=== PATIENT | male | born 1945 | race Caucasian/White ===

== ENCOUNTER 2018-07-28 15:47 | Emergency (ER) | payer MEDICARE ==
[2018-07-28 18:05] LABS: #Basophils 0.1 thou/uL (0.0-0.2); #Eosinphils 0.2 thou/uL (0.0-0.7); #Lymphocytes 1.5 thou/uL (1.20-3.40); #Monocytes 0.7 thou/uL (0.11-0.59); #Neutrophils 6.7 thou/uL (1.40-6.50); %Basophils 0.7 % (0.0-1.0); %Eosinophils 1.7 % (0.0-10.0); %Lymphocytes 16.4 % (21.0-51.0); %Monocytes 7.9 % (0.0-10.0); %Neutrophils 73.3 % (42.0-75.0); Hemoglobin 15.5 g/dL (14.0-18.0); Mean Corpuscular HGB CONC 32.6 g/dL (32.0-36.0); Mean Corpuscular Hemoglobin 32.2 pg (27.0-31.0); Mean Platelet Volume 6.9 fL (7.4-10.4); Platelet Count 307 thou/uL (130-400); RBC Distribution Width 12.2 % (11.5-14.5); White Blood Cell (WBC) Count 9.1 thou/uL (4.8-10.8)
== END 2018-07-28 19:11 | disposition home or self-care (01) ==
LOC: ERS 15:47
DX: M17.12 Unilateral primary osteoarthritis, left knee (principal); Z79.899 Other long term (current) drug therapy
CPT/HCPCS: 36415; 85025; 85652; 86140

== ENCOUNTER 2018-08-16 08:51 | Inpatient (IN) | payer MEDICARE ==
[2018-08-15 17:20] VITALS: BMI 37.1
[2018-08-16] MEDS ORDERED: Bupivacaine HCl 0.5%/Epinephrine 1:200,000/PF 30 ml Vial ONE (10:50)
[2018-08-16] MEDS ORDERED: Fentanyl 100 MCG/2 ML VIAL ONE ×3 (11:01→14:04)
[2018-08-16] MEDS ORDERED: cefTRIAXone\\ROCEPHIN 1 GM VIAL ONE (11:10)
[2018-08-16] MEDS ORDERED: Meperidine HCl/PF 25 MG/ML VIAL ONE (13:10)
[2018-08-16 14:28] LABS: BF Color Red; Body Fluid Source Synovial Fluid; Clarity Cloudy/Turbid (Clear)
[2018-08-16] MEDS ORDERED: PROPOFOL 200 MG/20 ML VIAL ONE (14:28)
[2018-08-16] MEDS ORDERED: Lidocaine 1% PF 5 ML VIAL ONE (14:28)
[2018-08-16] MEDS ORDERED: Ondansetron PF 4 MG/2 ML Vial ONE (14:28)
[2018-08-16 14:29] LABS: RBC Count-Automated 288000 /cumm; WBC/NonHematic-Auto 692 /cumm
[2018-08-16] MEDS ORDERED: Ketorolac Tromethamine 30 MG/ML VIAL ONE (14:41)
[2018-08-16] MEDS ORDERED: Bisacodyl 10 MG SUPP PR PRN (15:17)
[2018-08-16] MEDS ORDERED: Fentanyl 100 MCG/2 ML VIAL SLOW IVP PRN (15:17)
[2018-08-16] MEDS ORDERED: HYDROcodone/Acetaminophen 5/325 mg Tablet PO PRN (15:17)
[2018-08-16] MEDS ORDERED: traMADol HCl 50 MG TAB PO PRN ×2 (15:17)
[2018-08-16 15:21] LABS: BF Segmented Neutrophils 93 %; Cell Count Non Hematic 5 %; Lymphocytes 2 %
[2018-08-16] MEDS: Ketorolac Tromethamine 30 MG/ML VIAL IVP SCH (19:40)
[2018-08-16] MEDS: Tamsulosin HCl 0.4 MG CAP PO SCH (20:10)
[2018-08-16] MEDS: Aspirin 81 mg Enteric Coated Tablet PO SCH (20:10)
[2018-08-16] MEDS ORDERED: Heparin 1,000 UNITS/ML VIAL ONE (20:40)
--- NOTE | 2018-08-16 23:19 | EKG ---
Test Reason : PREOP Blood Pressure : / mmHG Vent. 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
[2018-08-17] MEDS: Ketorolac Tromethamine 30 MG/ML VIAL IVP SCH ×4 (00:47→17:24)
[2018-08-17] MEDS: Tamsulosin HCl 0.4 MG CAP PO SCH ×2 (08:44→20:25)
[2018-08-17] MEDS: Aspirin 81 mg Enteric Coated Tablet PO SCH ×2 (08:44→20:25)
[2018-08-17] MEDS: cefTRIAXone\\ROCEPHIN 2 GM in Sodium Chloride 0.9% 100 ML IVPB SCH (11:40)
--- NOTE | 2018-08-17 12:12 | OP ---
DATE OF PROCEDURE: 08/16/2018 PREOPERATIVE DIAGNOSIS: Possible left septic knee. POSTOPERATIVE DIAGNOSIS: Probable left septic knee. PROCEDURES PERFORMED: 1. Irrigation and debridement of possible left septic knee. 2. Soft tissue biopsy. 3. Aspiration. SPECIAL EVENTS DIRECTOR: None. ANESTHESIA: The patient received an LMA. ESTIMATED BLOOD LOSS: 30 mL. TOURNIQUET TIME: 20 minutes at 300 mmHg. ANTIBIOTICS: Rocephin 2 g. Postprocedure, the patient had an aspirate of 1.5 mL of serosanguineous fluid, which was sent for Gram stain, cell count, culture, crystals. The patient also had soft tissue aspirate from suprapatellar pouch, which was sent for culture. COMPLICATIONS: None. HISTORY OF PRESENT ILLNESS: Mr. Conteh is a 73-year-old male, who presented to my office originally last week, had a confusing history, in which he underwent an aspiration and injection in the past by Dr. Noguera with one of his assistants, Dr. Osborn injected the knee. There was some concern for possible infection. Aspirate was performed, which was negative, showing about 40,000 white cells. The patient then had a secondary aspirate at the beginning of this month in early July, having had Dr. Mccrary's office, which did show cultures, which were considered potential _ there was 42,000 white cells, 95% segments, ESR 30, CRP of 5 last week and I was concerned the patient might have a possible septic knee. Given this, I discussed with him getting arthroscopic soft tissue as well as washing the joint out to help with potentially remedying the situation. I discussed the risks and benefits of surgery to include pain, scar, bleeding, infection, damage to vital structures, decreased range of motion and strength, need for further surgeries, infections in the future, not being able to undergo a total knee arthroplasty. He understood all the risks and benefits and elected to proceed. DESCRIPTION OF PROCEDURE: Time-out was performed designating the patient's left lower extremity as the operative site based on site, consents, and markings. After time-out, I placed a spinal needle, passed it twice, actually trying to get fluid from the pouch, felt like there was a fluid collection, but was only able to get 1.5 mL of serosanguineous fluid, which was sent off for culture. I then started my scope, excised the fat pad, looked in the medial and lateral joint spaces to see if any changes. There was a loose body in the notch, which I removed. I debrided out fat pad and any loose bodies, looking medially and laterally, I then moved into the suprapatellar pouch. I used a soft tissue capture device to capture some of the superior lateral pouch to be sent off for culture and fluid. I then sent that off. I then washed total of 5 L of fluid to the patient's knee. Besides my anterolateral, anteromedial portal, I made a portal just off superolaterally to help with drainage. I left all 3 open, there was some bleeding after tourniquet was let down 20 minutes through the superior lateral portal, which I cauterized. The patient was placed in a soft tissue dressing. The patient received Rocephin after cultures were taken. He will be admitted overnight for 48 hours to follow cultures. The patient will be to proceed Rocephin. Job ID: [id number] [facility]ENTERAngel
--- NOTE | 2018-08-18 00:45 | CON ---
DATE OF CONSULTATION: 08/17/2018 REASON FOR CONSULTATION: Left knee infection. HISTORY OF PRESENT ILLNESS: A 73-year-old, history of chronic left knee problems. Reportedly, he was scheduled for left knee TKR down the road, but was trying to postpone it by getting what he describes as preventive corticosteroid injections in the left knee; the last one was done about a month ago; unfortunately, the symptoms became worse, not better and he started to develop quite prominent knee effusion, was aspirated 3 times and the last time it yielded Haemophilus parainfluenza, so he is admitted, had a washout by Dr. Altamirano, not particularly remarkable arthroscopy. He is currently feeling well. No headaches. No visual symptoms, sore throat, odynophagia, or dysphagia. No cough or sputum production. No chest pain. No abdominal pain. No diarrhea. No genitourinary symptoms. PAST MEDICAL HISTORY: Osteoarthrosis, particularly left knee. SOCIAL HISTORY: He is retired. He works as a rancher. Still quite active. Never smoker. . ALLERGIES: NONE. CURRENT MEDICATIONS: 1. [place]. 2. Ecotrin. 3. Dulcolax. 4. Rocephin. 5. Sublimaze. 6. Toradol. 7. Morphine. 8. Zofran. 9. Tramadol. PHYSICAL EXAMINATION: VITAL SIGNS: He is afebrile. His other vital signs are not particularly remarkable. SKIN: Normal except for the arthroscopy site. Peripheral IV access. No Dumas catheter. No lymphadenopathy. HEENT: Noncontributory. NECK: Supple. LUNGS: Symmetric. Clear breath sounds. HEART: S1 and S2, regular rate. No S3 or S4. ABDOMEN: Soft, not distended or tender. No ascites. No bladder distention. EXTREMITIES: Limitation range of motion of left knee with swelling as expected. NEUROLOGICAL: Nonfocal. LABORATORY DATA: Synovial fluid with 692 WBCs, 92% segmented neutrophils. The hematology with a white cell count 12.6, hemoglobin 15, platelets 290 with 90% neutrophils. Sedimentation rate 35, creatinine 0.82. CRP 5.36. The cultures from Dr. Mccrary's arthrocentesis yielded Haemophilus parainfluenza. ASSESSMENT: Osteoarthrosis with previous injection of corticosteroids few weeks ago, now with what appears to be Haemophilus parainfluenza, left knee septic arthritis. The number of white cells in the fluid are not what one would expect. It is not clear if he was given antimicrobials before he was admitted. It is possible that the corticosteroids have affected the amount of neutrophils that were found, but in view of the culture findings, we will have to treat him. In view of the quinolone, recent black-box warnings regarding multiple adverse reactions, we will continue with IV Rocephin for about 3 weeks. PICC line placement. Job ID: [id number]
[2018-08-18] MEDS: HYDROcodone/Acetaminophen 5/325 mg Tablet PO PRN ×3 (03:30→21:26)
[2018-08-18] MEDS: Aspirin 81 mg Enteric Coated Tablet PO SCH ×2 (09:37→20:05)
[2018-08-18] MEDS: Tamsulosin HCl 0.4 MG CAP PO SCH ×2 (09:37→20:05)
[2018-08-18] MEDS: cefTRIAXone\\ROCEPHIN 2 GM in Sodium Chloride 0.9% 100 ML IVPB SCH (10:23)
--- NOTE | 2018-08-18 11:11 | PQF ---
CLINICAL DOCUMENTATION IMPROVEMENT CLARIFICATION FORM: ICD-10 Updated PLEASE DO AN ADDENDUM TO THE PROGRESS NOTE WITH ANY DOCUMENTATION UPDATES OR ADDITIONS AND CARRY THROUGH TO DC SUMMARY. THANK YOU. DATE: 08/18/18 ATTN: DR. LOWERY Please exercise your independent, professional judgment in responding to the clarification form. Clinical indicators are provided on the bottom of this form for your review Please check appropriate box(s): [ ] Excisional Debridement: [ ] Excised [ ] Cut away [ ] Other: Depth / layer: (deepest layer of debridement): [ ] Skin[ ] SubQ Tissue [ ] Fascia [ ] Muscle [ ] Tendon [ ] Bone Appearance of wound: (e.g., down to fresh bleeding tissue, etc.)___ Margins: (please specify): / x x Instruments used: [ ] Scissors [ ] Scalpel [ ] Curette [ ] Soft tissue clipper [ ] Other: [ ] Non-excisional Debridement: (Removal by flushing, brushing, chemical, or washing) Depth / layer: (deepest layer of debridement): [ ] Skin[ ] Subcutaneous [ ] Fascia [ ] Muscle [ ] Tendon [ ] Bone [ ] Incision and Drainage only (No Debridement): Depth:[ ] Skin [ ] Subcutaneous [ ] Fascia [ ] Muscle [ ] Tendon [ ] Bone [ ] Escharectomy [ ] Other procedure diagnosis [ ] Unable to determine For continuity of documentation, please document condition throughout progress notes and discharge summary. Thank You. CLINICAL INDICATORS - SIGNS / SYMPTOMS / LABS OP NOTE: "I DEBRIDED OUT FAT PAD AND LOOSE BODIES, LOOKING MEDICALLY AND LATERALLY, I THEN MOVED INTO THE SUPRAPATELLAR POUCH.. I USED A SOFT TISSUE CAPTURE DEVICE TO CAPTURE SOME OF THE SUPERIOR POUCH TO BE SENT OFF FOR CULTURE AND FLUID." RISKS: LEFT SEPTIC KNEE TREATMENT: ORTHO CONSULT IRRIGATION AND DEBRIDEMENT (This form is maintained as a part of the permanent medical record) 2014 [employer]. All Rights Reserved [email or web address] Office: [phone] STEPHANIE
--- NOTE | 2018-08-18 18:27 | PRG ---
DATE OF SERVICE: 08/18/2018 SUBJECTIVE: Feeling better, less pain. No respiratory symptoms or abdominal pain. No diarrhea. No genitourinary symptoms. OBJECTIVE: VITAL SIGNS: Normal. GENERAL: Awake, alert, and oriented. Moderate swelling, left knee. LUNGS: Clear. HEART: S1 and S2. Regular rate. ABDOMEN: Soft, not distended. LABORATORY DATA: White cell count has not been repeated. Cultures with the reported organism. The new samples are thus far negative. ASSESSMENT: Haemophilus parainfluenzae, knee infection, probably hematogenous. Continue Rocephin for 3 weeks. I have placed orders for Case Management. Job ID: [id number]
[2018-08-19] MEDS: Aspirin 81 mg Enteric Coated Tablet PO SCH (08:57)
[2018-08-19] MEDS: Tamsulosin HCl 0.4 MG CAP PO SCH (08:57)
--- NOTE | 2018-08-19 09:11 | PQF ---
MATTY PERSON JUSTIN MD [id number] SURG A- [id number] CLINICAL DOCUMENTATION IMPROVEMENT CLARIFICATION FORM: ICD-10 Updated PLEASE DO AN ADDENDUM TO THE PROGRESS NOTE WITH ANY DOCUMENTATION UPDATES OR ADDITIONS AND CARRY THROUGH TO DC SUMMARY. THANK YOU. DATE: 08/18/18 ATTN: DR. LOWERY Please exercise your independent, professional judgment in responding to the clarification form. Clinical indicators are provided on the bottom of this form for your review Please check appropriate box(s): [ ] Excisional Debridement: Depth / layer: (deepest layer of debridement): [ ] Skin[ ] SubQ Tissue [ ] Fascia [ ] Muscle [ ] Tendon [ ] Bone [ ] Non-excisional Debridement: (Removal by flushing, brushing, chemical, or washing) Depth / layer: (deepest layer of debridement): [ ] Skin[ ] Subcutaneous [ ] Fascia [ ] Muscle [ ] Tendon [ ] Bone [ ] Incision and Drainage only (No Debridement): Depth:[ ] Skin [ ] Subcutaneous [ ] Fascia [ ] Muscle [ ] Tendon [ ] Bone [ ] Other procedure diagnosis [ ] Unable to determine For continuity of documentation, please document condition throughout progress notes and discharge summary. Thank You. CLINICAL INDICATORS - SIGNS / SYMPTOMS / LABS - OP NOTE (Dr. Lowery): "I DEBRIDED OUT FAT PAD AND LOOSE BODIES, LOOKING MEDICALLY AND LATERALLY, I THEN MOVED INTO THE SUPRAPATELLAR POUCH.. I USED A SOFT TISSUE CAPTURE DEVICE TO CAPTURE SOME OF THE SUPERIOR POUCH TO BE SENT OFF FOR CULTURE AND FLUID." RISKS: - OP NOTE (Dr. Lowery): Probable LEFT SEPTIC KNEE TREATMENT: - OP NOTE (Dr. Lowery) IRRIGATION AND DEBRIDEMENT 08-16 (Argen[employer]) ID consult: OSTEOARTHROSIS W/ PREVIOUS INJECTION OF CORTICOSTEROIDS FEW WEEKS AGO, NOW W/ WHAT APPEARS TO BE HAEMOPHILUS PARAINFLUENZA, LEFT KNEE SEPTIC ARTHRITIS Thank you, Roshni (This form is maintained as a part of the permanent medical record) 2015 [employer]. All Rights Reserved [email or web address] Office: [phone] [facility]
[2018-08-19] MEDS: cefTRIAXone\\ROCEPHIN 2 GM in Sodium Chloride 0.9% 100 ML IVPB SCH (13:11)
--- NOTE | 2018-08-19 14:43 | SPC ---
Sonographic guided left upper extremity PICC placement HISTORY: Knee infection. FINDINGS: After explaining the procedure and answering all questions, the left upper extremity was pr epped and draped in the usual sterile fashion. Sterile technique, buffered local anesthesia, sonographic guidance, and a 22-gauge needle used to carefully access the left basilic vein. Standard technique was then used to place the tip of a 5 [place]ese single lumen PICC so that the tip lies at the level of the right atrium. The catheter was flushed and secured externally. Patient tolerated the procedure well and was returned in unchanged condition. IMPRESSION: Left upper extremity PICC is ready for use.
[2018-08-19] MEDS: HYDROcodone/Acetaminophen 5/325 mg Tablet PO PRN (16:00)
[2018-08-19 17:23] VITALS: BP 120/73; TEMP 98.5
== END 2018-08-19 17:30 | disposition home or self-care (01) | DRG 465 ==
LOC: SDC 08:51 → SURG A 14:54
PROVIDERS: ADMIT Orthopaedic Surgery; ATTEND Orthopaedic Surgery
PROC: 0JBP0ZZ Excision of Left Lower Leg Subcutaneous Tissue and Fascia, Open Approach (ICD-10-PCS; principal; 2018-08-16)
PROC: 02H633Z Insertion of Infusion Device into Right Atrium, Percutaneous Approach (ICD-10-PCS; 2018-08-16)
PROC: B244ZZZ Ultrasonography of Right Heart (ICD-10-PCS; 2018-08-19)
PROC: 0S9D3ZZ Drainage of Left Knee Joint, Percutaneous Approach (ICD-10-PCS; 2018-08-19)
DX: M00.862 Arthritis due to other bacteria, left knee (principal); M17.0 Bilateral primary osteoarthritis of knee; B96.3 Hemophilus influenzae [H. influenzae] as the cause of diseases classified elsewhere; H91.90 Unspecified hearing loss, unspecified ear; Z79.1 Long term (current) use of non-steroidal anti-inflammatories (NSAID); Z79.52 Long term (current) use of systemic steroids; Z79.899 Other long term (current) drug therapy
CPT/HCPCS: 36569; 85060; 87070; 87205; 89051; 89060; 93005; 93010; C1751; J0670; J0696; J1644; J1885; J2001; J2175; J2405; J2704; J3010; J3490

== ENCOUNTER 2019-08-24 11:33 | Outpatient (CLI) | payer MEDICARE ==
--- NOTE | 2019-08-24 12:33 | CT ---
CT BRAIN NONCONTRAST: DATE: 08/24/2019 HISTORY: 74-year-old male with left-sided numbness for 4 months. ICD-10: "G 45.9, TIA; R 29.898, weakness of left hand; S09.90XA injury of head, initial encounter" COMPARISON: 02/26/[address] FINDINGS: Located slightly superior to the posterior edge of the right sylvian fissure, at the frontoparietal j unction laterally, there is a new finding of an approximately 3 x 2 cm region of low intra-axial attenuation, probably representing encephalomalacia-gliosis. In the right frontal lobe involving cortex, subcortical white matter, and deep white matter, there is a small, approximately 2 x 0.5 cm focus of low attenuation. The approximately 1.7 x 0.8 cm moderately hyperdense extra-axial mass adjacent to the left lateral fr ontal lobe, broadly abutting the dura in the vicinity of the coronal suture, represents meningioma, and is unchanged. In the contralateral corresponding location at the opposite side of the skull, there is a very simila r-appearing lesion measuring approximately 1.3 x 0.3 cm, which is highly likely to represent a second meningioma. This should be confirmed with an MRI with and without contrast. No mass effect or midline shift. Calvarium is intact. No acute intra-axial hemorrhage. No obstructive hydrocephalus. There is extensive partial opacification of bilateral mastoid air cells. IMPRESSION: 1) 2 foci of low attenuation in the right cerebrum. The probably represent infarctions. The larger mo re posterior one is favored to be old. The more anterior frontal lobe smaller one could either be subacute or old. 2) in addition to the previously demonstrated left small meningioma, there is probably a new small me ningioma in the contralateral side. 3) MRI of the brain with and without contrast may be useful.
== END 2019-08-24 11:34 | disposition home or self-care (01) ==
LOC: CT 11:33
PROVIDERS: ATTEND Family Medicine
DX: S09.90XD Unspecified injury of head, subsequent encounter (principal); R29.898 Other symptoms and signs involving the musculoskeletal system; G45.9 Transient cerebral ischemic attack, unspecified
CPT/HCPCS: 70450

== ENCOUNTER 2020-03-25 19:30 | Outpatient (CLI) | payer MEDICARE | END 2020-03-25 19:31 | disposition home or self-care (01) | LOC: SLEEPLAB 19:30 | PROVIDERS: ATTEND Family Medicine | DX: G47.33 Obstructive sleep apnea (adult) (pediatric) (principal); R06.83 Snoring; G47.10 Hypersomnia, unspecified; E66.9 Obesity, unspecified; Z68.34 Body mass index [BMI] 34.0-34.9, adult | CPT/HCPCS: 95811 ==

== ENCOUNTER 2021-11-10 12:53 | Outpatient (CLI) | payer MEDICARE | END 2021-11-10 12:54 | disposition home or self-care (01) | LOC: LABBT 12:53 | PROVIDERS: ATTEND Surgery | DX: Z20.822 Contact with and (suspected) exposure to COVID-19 (principal) | CPT/HCPCS: 87811 ==

== ENCOUNTER 2023-04-06 09:51 | Outpatient (CLI) | payer MEDICARE | END 2023-04-06 09:52 | disposition home or self-care (01) | LOC: BICULT 09:51 | PROVIDERS: ATTEND Urology | DX: N40.1 Benign prostatic hyperplasia with lower urinary tract symptoms (principal); N43.42 Spermatocele of epididymis, multiple; R35.1 Nocturia; R33.9 Retention of urine, unspecified; N50.3 Cyst of epididymis; N32.89 Other specified disorders of bladder | CPT/HCPCS: 76770; 76870; 93976 ==

== ENCOUNTER 2023-05-17 09:16 | Day surgery (SDC) | payer MEDICARE ==
[2023-05-17 09:04] LABS: #Basophils 0.1 thou/uL (0.0-0.2); #Eosinphils 0.2 thou/uL (0.0-0.7); #Monocytes 1.4 thou/uL (0.11-0.59); #Neutrophils 12.4 thou/uL (1.40-6.50); %Basophils 0.6 % (0.0-1.0); %Eosinophils 1.2 % (0.0-10.0); %Lymphocytes 12.4 % (21.0-51.0); %Monocytes 8.6 % (0.0-10.0); %Neutrophils 76.7 % (42.0-75.0); Hemoglobin 16.7 g/dL (14.0-18.0); Mean Corpuscular HGB CONC 33.4 g/dL (32.0-36.0); Mean Corpuscular Hemoglobin 33.1 pg (27.0-31.0); Mean Corpuscular Volume 99.2 fl (78.0-98.0); Mean Platelet Volume 9.4 fL (7.4-10.4); Platelet Count 297 10x3/uL (130-400); RBC Distribution Width 13.7 % (11.5-14.5); Red Blood Cell (RBC) Count 5.04 mill/uL (4.70-6.10); White Blood Cell (WBC) Count 16.2 10x3/uL (4.8-10.8)
[2023-05-17 09:15] LABS: Prothrombin Time 13.4 sec (12.0-14.7)
[2023-05-17 10:48] VITALS: BP 139/85; TEMP 98.9
[2023-05-17] MEDS ORDERED: LevoFLOXacin 250 mg/D5W 250 MG in Premix 1 BAG IVPB SCH (11:15)
[2023-05-17] MEDS ORDERED: Sodium Bicarbonate 0.5 MEQ/ML SDV 10 ML ONE (12:20)
[2023-05-17] MEDS ORDERED: Lidocaine 1% PF 5 ML VIAL ONE (12:20)
[2023-05-17] MEDS ORDERED: Lidocaine 2% 6 ML (Jelly) SYR ONE (12:36)
== END 2023-05-17 14:10 | disposition home or self-care (01) ==
LOC: CT 09:16
PROVIDERS: ATTEND Urology
PROC: 0T9B30Z Drainage of Bladder with Drainage Device, Percutaneous Approach (ICD-10-PCS; principal; 2023-05-17)
DX: N31.2 Flaccid neuropathic bladder, not elsewhere classified (principal); N40.1 Benign prostatic hyperplasia with lower urinary tract symptoms; G47.33 Obstructive sleep apnea (adult) (pediatric); D32.9 Benign neoplasm of meninges, unspecified; R35.1 Nocturia; R33.9 Retention of urine, unspecified; N43.42 Spermatocele of epididymis, multiple; N32.3 Diverticulum of bladder; N28.1 Cyst of kidney, acquired; N35.812 Other bulbous urethral stricture, male; Z79.899 Other long term (current) drug therapy; Z98.49 Cataract extraction status, unspecified eye; Z90.49 Acquired absence of other specified parts of digestive tract; Z98.890 Other specified postprocedural states
CPT/HCPCS: 51102; 77002; 85025; 85610; 85730; C2627; J1956

== ENCOUNTER 2023-09-15 11:38 | Outpatient (CLI) | payer MEDICARE | END 2023-09-15 11:39 | disposition home or self-care (01) | LOC: SCSRAD 11:38 | PROVIDERS: ATTEND Internal Medicine Rheumatology | DX: M17.0 Bilateral primary osteoarthritis of knee (principal) | CPT/HCPCS: 73565 ==

== ENCOUNTER 2023-09-19 07:56 | Emergency (ER) | payer MEDICARE ==
[2023-09-19 08:48] LABS: #Basophils 0.08 10x3/uL (0.0-0.2); %Basophils 1.1 % (0.0-1.0); %Lymphocytes 19.4 % (21.0-51.0); %Monocytes 7.3 % (0.0-10.0); %Neutrophils 66.8 % (42.0-75.0); Hematocrit 46.3 % (42.0-52.0); Hemoglobin 15.8 g/dL (14.0-18.0); Mean Corpuscular HGB CONC 34.1 g/dL (32.0-36.0); Mean Corpuscular Hemoglobin 31.8 pg (27.0-31.0); Mean Corpuscular Volume 93.2 fL (78.0-98.0); Mean Platelet Volume 9.4 fL (7.4-10.4); Platelet Count 243 10x3/uL (130-400); RBC Distribution Width 13.7 % (11.5-14.5); Red Blood Cell (RBC) Count 4.97 mill/uL (4.70-6.10)
[2023-09-19 09:16] LABS: Clarity Extra Turbid (Clear)
[2023-09-19 09:17] LABS: Leukocyte Large (Negative); Nitrite Negative (Negative); Specific Gravity, Urine 1.005 (1.002-1.036)
[2023-09-19 09:18] LABS: Glucose, Urine (Dipstick) Negative (Negative); Ketone, Urine Negative (Negative); Protein, Urine (Dipstick) 300 mg/dL (Neg-Trace); Urobilinogen 0.2 mg/dL (Less than 2)
[2023-09-19 09:19] LABS: Bilirubin Negative (Negative); Blood, Urine 3+ (Negative)
[2023-09-19 09:31] LABS: ALT (SGPT) 11 U/L (8-55); AST (SGOT) 16 U/L (5-34); Albumin 3.3 g/dL (3.4-4.8); Alkaline Phosphatase 71 U/L (40-110); Anion Gap 14 mmol/L (10-20); BUN (Urea Nitrogen) 17 mg/dL (8.4-25.7); Bilirubin, Total 0.6 mg/dL (0.2-1.2); Calc. Creatinine Clearance 0 mL/min (70-130); Calcium 8.4 mg/dL (7.8-10.44); Carbon Dioxide 20 mmol/L (23-31); Chloride 109 mmol/L (98-107); Estimated GFR 90; Glucose 93 mg/dL (83-110); Potassium 3.9 mmol/L (3.5-5.1); Protein, Total 6.3 g/dL (5.8-8.1); Sodium 139 mmol/L (136-145)
[2023-09-19 09:44] LABS: Bacteria/HPF 3+ HPF (None Seen); CAUTI Indications for Culture Dysuria,urgency,freq; RBC/HPF Greater than 50 HPF (0-3); Squamous Epithelial 0-3 HPF (0-3)
[2023-09-19 09:45] LABS: Urine Culture Reflex Yes Yes
[2023-09-19] MEDS ORDERED: Sodium Chloride 0.9% 100 ML ONE (11:20)
[2023-09-19] MEDS ORDERED: cefTRIAXone (ROCEPHIN) 1 GM VIAL ONE (11:20)
[2023-09-19] MEDS ORDERED: Iopamidol-370 76% 500 ML MDV (1 ML CHARGE) ONE (14:55)
== END 2023-09-19 12:10 | disposition home or self-care (01) ==
LOC: ERS 07:56
DX: N30.01 Acute cystitis with hematuria (principal); B37.9 Candidiasis, unspecified; Z96.0 Presence of urogenital implants
CPT/HCPCS: 36415; 74177; 80053; 81001; 83605; 83735; 85025; 87040; 87086; 96374; J0696; J3490; Q9967

== ENCOUNTER 2025-01-04 10:19 | Outpatient (CLI) | payer MEDICARE | END 2025-01-04 10:20 | disposition home or self-care (01) | LOC: SCSRAD 10:19 | PROVIDERS: ATTEND Surgery | DX: R10.84 Generalized abdominal pain (principal) | CPT/HCPCS: 74019 ==